=== PATIENT | female | born 1990 | race Caucasian/White ===

== ENCOUNTER 2016-09-28 11:02 | Day surgery (SDC) | payer OTHER ==
[~2016-09-28 11:02] MED LIST: BUPIVACAINE/EPI 0.5% 30 ML SDV ONE; LR 1,000 ML IV ONE; PHENAZOPYRIDINE HCL 200 MG TAB PO ONE; SKIN ADHESIVE (DERMABOND) 1 EACH TP ONE; ceFAZolin 2 GM/DEXTROSE 100 ML IV ONE
[2016-09-28] MEDS ORDERED: PROPOFOL/EMULSION 500 MG/50 ML BOTTLE IV ONE (11:12)
[2016-09-28] MEDS ORDERED: fentaNYL 250 MCG/5 ML INJ ONE (11:12)
[2016-09-28] MEDS ORDERED: PHENAZOPYRIDINE HCL 200 MG TAB ONE (11:37)
[2016-09-28] MEDS ORDERED: LIDOCAINE 1% 2 ML INJ ONE (11:38)
[2016-09-28] MEDS ORDERED: CEFAZOLIN 2 GM/DEXTROSE/100 ML BAG IV ONE (11:38)
[2016-09-28] MEDS ORDERED: LIDOCAINE 1% 5 ML SDV ID PRN (11:44)
[2016-09-28] MEDS ORDERED: LR 1,000 ML IV ONE (11:44)
[2016-09-28] MEDS ORDERED: MIDAZOLAM 2 MG/2 ML VIAL ONE (12:01)
[2016-09-28] MEDS ORDERED: ONDANSETRON 4 MG/2 ML VIAL ONE (12:03)
[2016-09-28] MEDS ORDERED: FAMOTIDINE 20 MG/NACL/50 ML BAG IV ONE (12:03)
[2016-09-28] MEDS ORDERED: DEXAMETHASONE 4 MG/ML VIAL ONE ×2 (12:03)
[2016-09-28] MEDS ORDERED: SUCCINYLCHOLINE CHLORIDE*ANESTHESIA ONLY*200 MG/10 ML SYR IVP ONE (12:03)
[2016-09-28] MEDS ORDERED: KETOROLAC 30 MG/1 ML SDV ONE (13:46)
[2016-09-28] MEDS ORDERED: ROCURONIUM 50 MG/5 ML VIAL ONE (13:46)
[2016-09-28] MEDS ORDERED: fentaNYL 100 MCG/2 ML INJ ONE (14:08)
[2016-09-28] MEDS ORDERED: HYDROmorphONE/DILAUDID 1 MG/ML SYR ONE (14:18)
[2016-09-28] MEDS ORDERED: HYDROCODONE/APAP 5/325 TAB ONE ×2 (14:37→15:24)
[2016-09-28] MEDS ORDERED: DIAZEPAM 10 MG/2 ML SYR ONE (15:02)
[2016-09-28] MEDS ORDERED: MEPERIDINE 25 MG/ML SYR ONE (15:28)
--- NOTE | 2016-09-28 16:07 | GOP ---
[f rep st] OPERATIVE REPORT DATE OF OPERATION: 09/28/2016 SURGEON: Tc Bass MD [employer]AL [employer] LABORER: Tiny Lee CFA ANESTHESIA: General. PREOPERATIVE DIAGNOSIS: 1. Endometriosis. 2. Pelvic pain. 3. Dysmenorrhea. 4. Dyschezia. 5. Interstitial cystitis. POSTOPERATIVE DIAGNOSIS: 1. Endometriosis. 2. Pelvic pain. 3. Dysmenorrhea. 4. Dyschezia. 5. Interstitial cystitis. PROCEDURE PERFORMED: 1. Robotic excision of extensive endometriosis in anterior and posterior cul-de-sacs, as well as waldo th ovarian fossae overlying both ureters. 2. Excision of rectal lesion. 3. Bilateral ureterolysis. 4. Partial right oophorectomy. 5. Ovarian pexy. 6. Cystoscopy. FINDINGS: SPECIMENS: 1. Pelvic peritoneum with endometriosis. 2. Rectal lesion. 1. Portion of right ovary. 3. ESTIMATED BLOOD LOSS: Scant. DESCRIPTION OF PROCEDURE: COMPLICATIONS: None. DISPOSITION: Patient stable to PACU. PROCEDURE: The patient was taken to the operating room, where she was identified. General anesthes ia was administered and found to be adequate. She was placed in lithotomy position and prepared and draped in normal sterile fashion. A Hulka tenaculum was placed in the uterus for manipulation. A Monique catheter was then placed. A 1 cm infraumbilical incision was made with a scalpel. The Veress needle with the CO2 gas line was advanced into the peritoneal cavity. The abdomen was then insufflated with carbon dioxide gas. Th e 12 mm trocar followed by the laparoscope were then inserted. The upper abdomen was unremarkable. There is no evidence of endometriosis on either diaphragm nor the liver, chest wall, or stomach. T wo lateral ports were placed in the right under direct visualization. The patient was then placed i n Trendelenburg position and the Da Cody robot docked on the left side. The instruments were then brought into the abdominal cavity under direct visualization. The patient was found to have endomet riosis in both anterior and posterior cul-de-sacs, as well as both ovarian fossae overlying both ure ters, as well as the distal rectum. The lesion on the distal rectum was first excised. It was exte nded approximately 50% through the muscularis. The dissection was carried distally to remove the en tire posterior cul-de-sac peritoneum, extending up to the cervix and laterally to both uterosacral l igaments. The anterior cul-de-sac peritoneum was almost completely excised. There was 1 small lesi on on the left ovary which was fulgurated. A bilateral ovarian pexy was then performed by attaching the ovaries to the ipsilateral round ligaments with 5-0 rapidly-dissolving chromic suture. The pat ient had a deeper lesion on the right ovary, which was excised, including the surrounding ovarian st brian. The endometriosis in the ovarian fossae was then excised. This required a bilateral ureterol ysis. The pelvic peritoneum near the pelvic brim was incised on the left. The ureter was then gent ly dissected free. It was lateralized all the way down to the bladder. Once this was accomplished and from the overlying peritoneum and endometriosis, the entire ovarian fossa peritoneum w as completely excised all the way to the cervix. An exact same procedure was performed on the patie nt's right side, also requiring a right ureterolysis. All specimens were then removed. The pelvis was irrigated with sterile saline and hemostasis was present. The right ovarian pexy had been perfo rmed prior to removing the right ovarian fossa endometriosis. Two sheets of Interceed were placed i n the ovarian fossae. The robot was then undocked. The fascia was closed with 0 Vicryl, the skin w ith 4-0 Monocryl and surgical adhesive. Cystoscopy was then performed. Both ureters had vigorous jets of urine. There were 2 Hunner's ulce rs, 1 in the midline and 1 on the patient's left side. Unfortunately, the generator for the fulgura tion device was being utilized in a different operating room. No other pathology was seen. Anesthe janiya was reversed and patient taken to the PACU awake, in stable condition. /[id number]/MODL
== END 2016-09-28 17:00 | disposition home or self-care (01) ==
LOC: FSGY 11:02 → EDSEX 11:02 → FSGY 17:00
PROVIDERS: ATTEND Obstetrics & Gynecology
PROC: 0U514ZZ Destruction of Left Ovary, Percutaneous Endoscopic Approach (ICD-10-PCS; principal; 2016-09-28 12:45)
PROC: 0DBP4ZZ Excision of Rectum, Percutaneous Endoscopic Approach (ICD-10-PCS; principal; 2016-09-28 12:45)
PROC: 0UBF4ZZ Excision of Cul-de-sac, Percutaneous Endoscopic Approach (ICD-10-PCS; principal; 2016-09-28 12:45)
PROC: 0UB04ZZ Excision of Right Ovary, Percutaneous Endoscopic Approach (ICD-10-PCS; principal; 2016-09-28 12:45)
PROC: 0US24ZZ Reposition Bilateral Ovaries, Percutaneous Endoscopic Approach (ICD-10-PCS; principal; 2016-09-28 12:45)
PROC: 8E0W4CZ Robotic Assisted Procedure of Trunk Region, Percutaneous Endoscopic Approach (ICD-10-PCS; principal; 2016-09-28 12:45)
DX: N80.3 Endometriosis of pelvic peritoneum (principal); N80.5 Endometriosis of intestine; N80.1 Endometriosis of ovary; N94.6 Dysmenorrhea, unspecified; R10.2 Pelvic and perineal pain; N94.10 Unspecified dyspareunia; K58.9 Irritable bowel syndrome, unspecified; N30.10 Interstitial cystitis (chronic) without hematuria; F17.210 Nicotine dependence, cigarettes, uncomplicated
CPT/HCPCS: 58661; 58662; 58679; C1765; J0330; J0690; J1100; J1170; J1885; J2250; J2405; J2704; J3010